=== PATIENT | female | born 1950 | race Caucasian/White ===

== ENCOUNTER 2021-05-21 11:01 | Emergency (ER) | payer OTHER ==
[~2021-05-21] VITALS: Ht 157.5 cm; Wt 84.6 kg
--- NOTE | 2021-05-21 11:34 | NUR ---
ASSUMED CARE OF PT. SHE REPORTS SHE IS HERE FOR BLE SWELLING AND HAS HAD DVT IN PAST. PT STATES SHE NEEDS TO VOID AND TOLD HER WE NEEDED A SAMPLE. PT PROVIDED SAMPLE CUP W/ INSTRUCTION FOR CLEAN CATCH. LAB CURRENTLY BEDSIDE.
--- NOTE | 2021-05-21 11:46 | NUR ---
US BEDSIDE NOW
[2021-05-21 11:51] LABS: BASOPHILS % (AUTO) 1 % (0-1); EOSINOPHILS % (AUTO) 10 % (1-7); LYMPHOCYTES % (AUTO) 24 % (22-44); MEAN CORPUSCULAR HEMOGLOBIN 27.6 pg (27.0-34.8); MEAN CORPUSCULAR HGB CONC 32.4 g/dL (32.4-35.8); MONOCYTES % (AUTO) 10 % (2-9); NEUTROPHILS % (AUTO) 56 % (42-75); PLATELET COUNT 123 x10^3/uL (130-400); RED BLOOD COUNT 3.83 x10^6/uL (3.82-5.3); RED CELL DISTRIBUTION WIDTH 17.6 % (9.6-15.2)
[2021-05-21 11:56] LABS: ALANINE AMINOTRANSFERASE 23 U/L (12-78); ALBUMIN 2.9 g/dL (3.4-5.0); ANION GAP 8 mmol/L (5-15); CALCIUM 9.1 mg/dL (8.5-10.1); CHLORIDE 112 mmol/L (98-107); CREATININE 1.09 mg/dL (0.55-1.02)
--- NOTE | 2021-05-21 11:57 | NUR ---
PT VSS, NADN, DENIES ANY NEED
[2021-05-21 12:00] LABS: ALKALINE PHOSPHATASE 93 U/L (45-117); TOTAL PROTEIN 7.3 g/dL (6.4-8.2)
[2021-05-21 12:24] LABS: MICROSCOPIC NOT IND
[2021-05-21 12:46] VITALS: BP 113/59
--- NOTE | 2021-05-21 12:46 | NUR ---
PT RESTING COMFORTABLY IN RSIGEL, W/ [id number] BEDSIDE. [facility], ROSSYN. CALL LIGHT W/IN REACH.
== END 2021-05-21 13:41 | disposition home or self-care (01) ==
LOC: ED 13:30
DX: L03.116 Cellulitis of left lower limb (principal); R60.0 Localized edema
CPT/HCPCS: 36415; 71045; 80053; 81003; 83880; 85025; 93005; 93970; 99284